=== PATIENT | female | born 1990 | race African-American/Black ===

== ENCOUNTER 2020-10-01 16:47 | Emergency (ER) | payer OTHER ==
[~2020-10-01] VITALS: Ht 167.6 cm; Wt 68.0 kg
[2020-10-01 18:12] LABS: HEMATOCRIT 36.7 % (31.2-41.9); MEAN CORPUSCULAR HEMOGLOBIN 27.9 uug (24.7-32.8); MEAN CORPUSCULAR VOLUME 84.4 fL (75.5-95.3); PLATELET COUNT (AUTO) 228 K/uL (179-408)
[2020-10-01 18:21] LABS: CARBON DIOXIDE 27 mmol/L (21-32); CHLORIDE 102 mmol/L (98-107); GLUCOSE 87 mg/dL (74-106); POTASSIUM 4.2 mmol/L (3.5-5.1); UREA NITROGEN, BLOOD 13 mg/dL (7-18)
[2020-10-01 18:24] LABS: MAGNESIUM 1.8 mg/dL (1.8-2.4); PHOSPHOROUS 3.7 mg/dL (2.5-4.9)
[2020-10-01] MEDS: IV NORMAL SALINE 1000 ML BAG IV ONE (18:25)
[2020-10-01 18:26] LABS: ALANINE AMINOTRANSFERASE 13 U/L (14-59); ALKALINE PHOSPHATASE 49 U/L (50-136); ASPARTATE AMINOTRANSFERASE 16 U/L (15-37); BILIRUBIN,DIRECT 0.2 mg/dL (0.0-0.2); BILIRUBIN,TOTAL 0.7 mg/dL (0.2-1.0); ETHANOL < 3 MG/DL (0-0); LIPASE 80 U/L (73-393); TOTAL PROTEIN, SERUM 7.2 g/dL (6.4-8.2)
[2020-10-01] MEDS: ONDANSETRON ODT 4 MG TAB.RAPDIS SL STA (18:40)
[2020-10-01] MEDS ORDERED: ONDANSETRON ODT 4 MG TAB.RAPDIS ONE (18:45)
[2020-10-01] MEDS ORDERED: ACETAMINOPHEN ES 500 MG TABLET ONE (18:45)
[2020-10-01] MEDS ORDERED: MAG HYDROX/AL HYDROX/SIMETH 30 ML LIQUID UDC ONE (18:46)
[2020-10-01] MEDS ORDERED: LIDOCAINE VISCUS 2% 15 ML UDC ONE (18:46)
[2020-10-01] MEDS: MAG HYDROX/AL HYDROX/SIMETH 30 ML LIQUID UDC PO ONE (18:53)
[2020-10-01] MEDS: ACETAMINOPHEN ES 500 MG TABLET PO ONE (18:53)
[2020-10-01] MEDS: LIDOCAINE VISCUS 2% 15 ML UDC MM ONE (18:53)
[2020-10-01] MEDS ORDERED: IOHEXOL 300MG/ML 100 ML INFUS..BTL ONE (19:33)
[2020-10-01] MEDS ORDERED: IV NORMAL SALINE 250 ML IV ONE (19:33)
[2020-10-01] MEDS ORDERED: SWABABLE VALVE TRANSFER SET EA MC ONE (19:33)
[2020-10-01] MEDS ORDERED: ONDA4TAB11 PO (21:50)
[2020-10-01] MEDS ORDERED: IBUP-1955 PO (21:50)
--- NOTE | 2020-10-01 22:14 | NUR ---
Summary of care. Received report compa Ngo RN ABD pain,Awake alert,orented to time place able to make needs known. Feeling better,nausea gone. Consented for CT ABD, pelvis with contrast with patient. Up to [facility] UA obtained bedside. Patient to CT,ALBERTA completed. MD Pelayo bedside. Patient states feeling better wants to leave will follow up with [facility].AMA signed with pt. Given MD advisement,RX mariam jacinto. Juice x 1 240cc milan well. RAC #20 SL DC'ed cath intact.Dry dressing x 1.
[2020-10-01 22:20] LABS: *BILIRUBIN,URIN NEGATIVE (NEGATIVE); *CLARITY,URINE CLEAR (CLEAR); *COLOR,URINE YELLOW (YELLOW); *KETONES,URINE NEGATIVE (NEGATIVE); *UROBILINOGEN,URINE 0.2 E.U./dl (NORMAL); LEUKOCYTE ESTERASE ,URINE NEGATIVE (NEGATIVE); NITRITE, URINE NEGATIVE (NEGATIVE); UGLUCOSE NEGATIVE (NEGATIVE)
[2020-10-01 22:21] LABS: *BLOOD, URINE TRACE (NEGATIVE)
[2020-10-01 22:26] LABS: *URINE HCG, QUAL NEGATIVE (NEGATIVE); BACTERIA,URINE MODERATE /HPF (NONE SEEN); RBC,URINE 0-3 /HPF (0-3); SQUAMOUS EPITHELIAL CELL,UR MODERATE /HPF (NONE SEEN); WBC,URINE NONE SEEN /HPF (0-3)
[2020-10-01 22:37] LABS: *AMPHETAMINE, URINE NEGATIVE (NEGATIVE); *CANNABINOID, URINE NEGATIVE (NEGATIVE); *COCCAINE, URINE NEGATIVE (NEGATIVE); *OPIATE, URINE NEGATIVE (NEGATIVE); *PHENCYCLIDINE SCREEN,URINE NEGATIVE (NEGATIVE)
== END 2020-10-02 01:00 | disposition left against medical advice (07) ==
LOC: ER 16:54
DX: R10.13 Epigastric pain (principal); R19.7 Diarrhea, unspecified; R11.10 Vomiting, unspecified; Z20.822 Contact with and (suspected) exposure to COVID-19; Z90.10 Acquired absence of unspecified breast and nipple
CPT/HCPCS: 36415; 74177; 76700; 80048; 80076; 80307; 80320; 81001; 83690; 83735; 84100; 84484; 84702; 84703; 85025; 87086; 87426; 93005; 99285; Q9967; 70030-TC; A4663; A9150; G0480; J7030; J7050; Q0162

== ENCOUNTER 2020-12-05 09:45 | Emergency (ER) | payer OTHER ==
[~2020-12-05] VITALS: Ht 167.6 cm; Wt 70.3 kg
[~2020-12-05 09:45] MED LIST: IBUP-1955 PO; ONDA4TAB11 PO
[2020-12-05] MEDS ORDERED: diphenhydrAMINE 1% CREAM 28.3 GM TUBE TP ONE (10:15)
[2020-12-05] MEDS ORDERED: diphenhydrAMINE 2% 28.4 GM CREAM TP ONE (10:15)
[2020-12-05] MEDS ORDERED: predniSONE 20 MG TABLET PO ONE (10:15)
[2020-12-05] MEDS ORDERED: predniSONE 10 MG TABLET ONE (10:16)
[2020-12-05] MEDS ORDERED: predniSONE 50 MG TABLET ONE (10:16)
[2020-12-05] MEDS ORDERED: PRED20TA PO (10:30)
--- NOTE | 2020-12-05 10:35 | NUR ---
Patient discharged to home in stable condition. Written and verbal after care instructions given. Patient verbalizes understanding of instructions. Stressed follow up or return to ER for worsening s/s.
== END 2020-12-05 10:35 | disposition home or self-care (01) ==
LOC: ER 09:45
DX: H01.8 Other specified inflammations of eyelid (principal); Z90.13 Acquired absence of bilateral breasts and nipples
CPT/HCPCS: 99283; J7512 ×2; A4663